=== PATIENT | female | born 1995 | race African-American/Black ===

== ENCOUNTER 2021-06-10 14:07 | Emergency (ER) | payer OTHER ==
[~2021-06-10] VITALS: Ht 157.5 cm; Wt 54.4 kg
[2021-06-10 14:36] LABS: URINE BILIRUBIN NEGATIVE (Negative); URINE BLOOD 3+ (Negative); URINE CLARITY CLOUDY; URINE COLOR YELLOW; URINE GLUCOSE-RANDOM* NEGATIVE (Negative); URINE KETONES NEGATIVE (Negative); URINE LEUKOCYTES-REFLEX 3+ (Negative); URINE NITRITE-REFLEX NEGATIVE (Negative); URINE PROTEIN (DIPSTICK) 2+ (Negative)
[2021-06-10 14:44] LABS: BACTERIA-REFLEX 1-9 Few /HPF (None Seen); CASTS None Seen /LPF (None Seen); CRYSTALS None Seen /LPF (None Seen); SQUAMOUS 4-10 Moderate /LPF (0-3); URINE RBC 3-10 Few /HPF (NONE SEEN); URINE WBC-REFLEX >25 Many /HPF (0-5)
[2021-06-10 15:06] LABS: ABSOLUTE NEUTROPHILS 5.2 thou/uL (1.4-8.2); BASOPHILS 0.3 % (0.0-2.0); EOSINOPHILS 0.1 % (0.0-3.0); HEMATOCRIT 39.1 % (37.0-47.0); HEMOGLOBIN 13.3 gm/dL (12.0-15.0); LYMPHOCYTES 18.5 % (24.0-44.0); MCH 31.6 pg (26.0-34.0); MCV 92.9 fL (80.0-100.0); MONOCYTES 12.8 % (1.0-8.0); PLATELET COUNT 237 thou/uL (150-400); POLYS 68.3 % (36.0-66.0); WBC 7.6 thou/uL (4.0-11.0)
[2021-06-10 15:17] LABS: POTASSIUM 3.5 mmol/L (3.5-5.1)
[2021-06-10 15:22] LABS: ALBUMIN 3.9 g/dL (3.4-5.0); TOTAL BILIRUBIN 0.3 mg/dL (0.2-1.0); TOTAL PROTEIN 7.6 g/dL (6.4-8.2)
[2021-06-10] MEDS ORDERED: TORADOL 10 MG T10 MG PO (16:00)
[2021-06-10] MEDS ORDERED: BACTRIM DS TAB1 EACH PO (16:00)
[2021-06-10 16:15] VITALS: BP 135/96
== END 2021-06-10 16:51 | disposition home or self-care (01) ==
LOC: EDBD 14:07 → ER 14:07
PROVIDERS: Physician Assistant
DX: N39.0 Urinary tract infection, site not specified (principal); Z72.89 Other problems related to lifestyle; Z20.822 Contact with and (suspected) exposure to COVID-19